=== PATIENT | male | born 1965 | race Caucasian/White ===

== ENCOUNTER 2025-05-10 10:04 | Emergency (ER) | payer MEDICAID, SELFPAY ==
--- NOTE | ~2025-05-10 | XR_ITS ---
Examination: XR chest 2V Clinical History: sob Comparison: None Technique: PA and Lateral Findings: Cardiomediastinal silhouette normal size and configuration. Lungs clear. No acute bony abnormality. IMPRESSION: 1. No acute cardiopulmonary findings. Reviewed, dictated and finalized at location R.
--- NOTE | ~2025-05-10 | US_ITS ---
BILATERAL LOWER EXTREMITY VENOUS DUPLEX Clinical History: edema and pain and red B . Comparison: None. Technique: Grayscale, color, duplex/spectral Doppler sonography bilateral lower extremities. Findings: Bilateral common femoral, femoral, popliteal, and calf veins compressible and color Doppler patent. Normal augmentation with distal compression. No internal echoes. IMPRESSION: 1. No DVT either leg. Reviewed, dictated and finalized at location R. IMPRESSION: 1. No DVT either leg.
[2025-05-10 10:04] VITALS: BP 127/96; PULSE 74; RESP 14; TEMP 36.6; O2SAT 98
--- NOTE | 2025-05-10 10:09 | ED_ITS ---
HPI - Extremity Injury (Lower) General Chief Complaint: Extremity Injury, Lower Stated Complaint: edema to legs Time Seen by Provider: 05/10/25 10:09 Source: patient Mode of arrival: ambulatory Limitations: no limitations History of Present Illness HPI Narrative: Patient is a 60-year-old male with bilateral lower extremity swelling and then redness to both legs over the past 3 weeks. He presents today with continued and worsening symptoms of the lower extremities bilaterally. Slight shortness of breath. No chest pain. No history of CAD. No PAD. No definite injuries. MD complaint: other (Bilateral lower extremity) Onset (ago): week(s) (3) Type of Injury: other (No injury or puncture wounds to lower extremity bilateral) Place: home Severity: moderate Severity scale (1-10): 4 Relieving factors: nothing Exacerbating factors: nothing Context: other (No injury) Associated symptoms: swelling and ambulatory Other symptoms: none Treatments prior to arrival: other (None) Related Data Allergies Allergy/AdvReac Type Severity Reaction Status Date / Time No Known Allergies Allergy Verified 05/10/25 10:49 Review of Systems 2 Review of Systems: All systems reviewed & are unremarkable except as noted in HPI and below Constitutional: Constitutional: Reports no additional constitutional complaints Eyes: Eyes: Reports no additional eye complaints ENT: Reports system reviewed and no additional complaints, except as documented Cardiovascular: Cardiovascular: Reports no additional cardiovascular complaints Respiratory: Respiratory: Reports no additional respiratory complaints Gastrointestinal: Gastrointestinal: Reports no additional gastrointestinal complaints Genitourinary: Genitourinary: Reports no additional male genitourinary complaints Musculoskeletal: Musculoskeletal: Reports no additional musculoskeletal complaints Integumentary/Breasts: Skin/Breast: Reports system reviewed and no additional complaints, except as docu Neurologic: Reports system reviewed and no additional complaints, except as documented Psychiatric: Psychiatric: Reports no additional psychiatric complaints Endocrine: Endocrine: Reports no additional endocrine complaints Hematologic/Lymphatic: Hematologic/Lymphatic: Reports no additional hematologic/lymphatic complaints Allergic/Immunologic: Allergic/Immunologic: Reports no additional allergic/immunologic complaints Exam 2 Const: General: healthy appearing Nutritional Appearance: well nourished Orientation/consciousness: patient oriented x3 HENMT: Head: normal to inspection Ears: external ears normal F munir/Nose/Sinus: Normal external nose present Eyes: Conjunctivae: conjunctivae normal Pupils: Equal, round and reactive pupils present EOM: EOMs intact bilaterally Neck: Neck: normal visual inspection Chest: Chest palpation & inspection: normal inspection of the chest Resp: Effort & Inspection: normal respiratory effort and not labored A uscultation: clear to auscultation bilaterally and no crackles Cardio: Rate: regular rate Rhythm: regular rhythm Heart sounds: no murmurs GI: Inspection: non-distended GI Palp: Yes Soft to palpation and No Tenderness to palpation present (GI) Auscultation: normal bowel sounds : General: Yes bladder normal to palpation Back/Spine/Pelvis: Back: no CVA tenderness Skin: General skin exam: normal color Rashes: no rashes Wounds: no wounds Neuro: General: patient oriented x3, moves all extremities and no meningeal signs Extrem: General: abnormal to inspection, clubbing, cyanosis or edema noted and pedal edema present Other: Bilateral lower extremity have erythema from the below knee all the way to the feet mostly circumferentially as well as 2 to 3+ pitting edema and some petechia without any nidus of infection Psych: Mental Status: mental status grossly normal Affect: normal affect Attitude: cooperative Course Vital Signs Vital signs: Vital Signs Temperature 36.6 C 05/10/25 10:04 Pulse Rate 74 05/10/25 10:04 Respiratory Rate 14 05/10/25 10:04 Blood Pressure 127/96 H 05/10/25 10:04 Pulse Oximetry 98 05/10/25 10:04 Oxygen Delivery Room Air 05/10/25 10:04 Temperature 36.6 C 05/10/25 10:04 Pulse Rate 74 05/10/25 10:04 Respiratory Rate 14 05/10/25 10:04 Blood Pressure 127/96 H 05/10/25 10:04 Pulse Oximetry 98 05/10/25 10:04 Oxygen Delivery Room Air 05/10/25 10:04 MDM - Extremity Injury (Lower) MDM Narrative Medical decision making narrative: Patient is a 60-year-old male with bilateral lower extremity swelling and redness over the past 3 weeks. We will get ultrasound, cardiac workup and routine labs. Urine. I discussed with the patient that he will likely need admission for IV antibiotics but he has declined at this time and said that he would like to try outpatient 1st. Lab Data Attestation: I reviewed the patient's lab results. 05/10/25 10:26 05/10/25 10:26 Labs: Lab Results 05/10/25 05/10/25 Range/Units 10:26 11:35 WBC 8.6 (4.8-10.8) K/mm3 RBC 4.85 (4.70-6.10) M/mm3 Hgb 15.8 (14.0-18.0) g/dL Hct 47.4 (40.0-54.0) % MCV 97.7 (78.0-102.0) fL MCH 32.6 H (27.0-31.0) pg MCHC 33.3 (32-36) g/dL RDW 13.0 (11.6-14.4) % Plt Count 186 (150-420) K/mm3 MPV 9.4 (8.7-11.0) fl Immature Gran % (Auto) 0.8 H (0.0-0.0) % Neut % (Auto) 71.2 H (50.0-70.0) % Lymph % (Auto) 14.0 L (18.0-42.0) % Rains % (Auto) 9.0 (2.0-11.0) % Eos % (Auto) 4.1 (1.0-6.0) % Baso % (Auto) 0.9 (0.0-1.0) % Lymph # (Auto) 1.20 (1.10-4.50) K/mm3 Rains # (Auto) 0.77 (0.10-0.90) K/mm3 Eos # (Auto) 0.35 (0.02-0.50) K/mm3 Baso # (Auto) 0.08 (0.00-0.10) K/mm3 Abs Immat Gran (auto) 0.07 H (0.00-0.00) K/mm3 Absolute Neuts (auto) 6.10 (1.70-7.20) K/mm3 Absolute Nucleated RBC 0.00 (0.00-0.00) K/mm3 Nucleated RBC % 0.0 (0-0.0) % Sodium 139 (137-145) mmol/L Potassium 4.7 (3.4-5.0) mmol/L Chloride 100 (98-107) mmol/L Carbon Dioxide 28 (22-30) mmol/L Anion Gap 11 (4-12) mmol/L BUN 8 L (9-20) mg/dL Creatinine 0.82 (0.7-1.3) mg/dL Estim Creat Clear Calc 102 ml/min Estimated GFR > 60 (59 - ) Glucose 113 H (65-110) mg/dL Hemoglobin A1c 5.2 (<5.7) % Calculated Osmolality 287 (285-295) mOsm/kg Calcium 10.2 (8.4-10.2) mg/dL Total Bilirubin 1.0 (0.2-1.3) mg/dL AST 50 (17-59) U/L ALT 24 (6-50) U/L Alkaline Phosphatase 91 (38-126) U/L Troponin I < 0.012 (0.000-0.034) ng/mL NT-Pro-B Natriuret Pep < 20 (19.9-100) pg/mL Total Protein 8.5 H (6.3-8.2) g/dL Albumin 4.3 (3.5-5.1) g/dL Urine Color Light yellow (Yellow) Urine Appearance Clear (Clear) Urine pH 6.0 (5.0-8.0) Ur Specific [place] 1.020 (1.010-1.020) Urine Protein Negative (Negative) Urine Glucose (UA) Negative (Negative) Urine Ketones 1+ H (Negative) Ur Blood (Man) Negative (Negative) Urine Nitrate Negative (Negative) Urine Bilirubin Negative (Negative) Urine Urobilinogen 0.2 (0.2-1.0) mg/dL Leukocyte Esterase Rfl Negative (Negative) MITCH/UL Imaging Data Attestation: I personally reviewed and interpreted this imaging study as follows: Radiologist's impression: Chest x-rays negative for acute process Venous ultrasound bilateral lower extremities were negative for DVTs ECG Data EKG #1: Attestation: I personally reviewed and interpreted this ECG as follows: ECG completion date: 05/10/25 ECG completion time: 10:38 EKG Interpretation: normal rate, sinus rhythm, no ectopy, normal QRS, normal QT and NL axis Discharge Plan Discharge Clinical Impression: Cellulitis Qualifiers: Site of cellulitis: extremity Site of cellulitis of extremity: lower extremity Laterality: unspecified laterality Qualified Code(s): L03.119 - Cellulitis of unspecified part of limb Patient Disposition: Home Condition: Stable Instructions: Antibiotic Form, Cellulitis (ED) Additional Instructions: Please come back to the emergency room with this outpatient plan does not work and you have continued swelling and redness. Elevate lower extremities. Patient Language: Serbian Prescriptions: New doxycycline monohydrate 100 mg capsule 100 mg PO BID 10 Days Qty: 20 0RF Follow-up/Referrals: UNKNOWN,DOCTOR [Non-Staff] Time of Disposition: 11:53
--- NOTE | 2025-05-10 10:15 | ECG_ITS ---
Test Date: 2025-05-10 10:24:39 Measurements Intervals [place] Rate: 67 P: 33 SC: 125 QRS: 71 QRSD: 101 T: 56 QT: 398 QTc: 423 Interpretive Statements SINUS RHYTHM No previous ECG available for comparison Electronically Signed On 05-10-2025 20:07:52 CDT by Kacy Clark M.D.
[2025-05-10 10:30] LABS: Hematocrit 47.4 % (40.0-54.0); Hemoglobin 15.8 g/dL (14.0-18.0); Immature Granulocyte Percent A 0.8 % (0.0-0.0); Lymphocytes Absolute Auto 1.20 K/mm3 (1.10-4.50); Mean Corpuscular HGB Conc 33.3 g/dL (32-36); Mean Corpuscular Hemoglobin 32.6 pg (27.0-31.0); Mean Corpuscular Volume 97.7 fL (78.0-102.0); Nucleated Red Blood Cells Absolute Auto 0.00 K/mm3 (0.00-0.00); Nucleated Red Blood Cells Perc 0.0 % (0-0.0); Platelet Count Result 186 K/mm3 (150-420); Red Blood Count 4.85 M/mm3 (4.70-6.10); White Blood Count 8.6 K/mm3 (4.8-10.8)
[2025-05-10 10:43] LABS: Alanine Aminotransferase 24 U/L (6-50); Albumin Level 4.3 g/dL (3.5-5.1); Alkaline Phosphatase 91 U/L (38-126); Anion Gap 11 mmol/L (4-12); Aspartate Amino Transferase 50 U/L (17-59); Bilirubin,Total 1.0 mg/dL (0.2-1.3); Blood Urea Nitrogen 8 mg/dL (9-20); Calcium 10.2 mg/dL (8.4-10.2); Carbon Dioxide 28 mmol/L (22-30); Chloride 100 mmol/L (98-107); Estimated CRCL calculation 102 ml/min; Estimated Glomerular Filt Rate > 60; Glucose 113 mg/dL (65-110); Osmolality Calculated 287 mOsm/kg (285-295); Potassium 4.7 mmol/L (3.4-5.0); Sodium 139 mmol/L (137-145); Total Protein 8.5 g/dL (6.3-8.2)
[2025-05-10 10:45] LABS: Hemoglobin A1C 5.2 % (<5.7)
--- OUTSIDE RECORDS SUMMARY | 2025-05-10 10:50 | XMS_ITS | Clinical Summary ---
Author Organization [facility] Address [address] [place] [id number] Care Team Providers Care Plate Stacker Name Role Phone Jean Claude Marquez DO Primary Care Provider + Allergies Active Allergy Reactions Criticality Noted Date Comments Ibuprofen Other (See comments) Low 09/05/2019 Reaction: Medications nystatin-triamci nolone creamIndications :cutaneous candidiasis Apply to affect area twice a day for 7-14 days then as needed for rash. 60 g 1 09/05/2019 Active Active Problems Problem Noted Date Diagnosed Date Dermatitis 01/06/2018 Other chronic pain 05/09/2017 Onychomycosis 11/28/2015 Pain of toe 11/28/2015 Immunizations Immunization Administration Dates Next Due Tdap 12/13/2018 Surgical History Surgery Date Site/Laterality Comments SHOULDER SURGERY Left HERNIA REPAIR Family History Medical History Relation Name Comments Cystic fibrosis Daughter Family histo ry of cystic fibrosis - (Added by TW Conv) Cancer Other Diabetes Other Relation Name Status Comments Daughter Other Social History Tobacco Use Types Packs/Day Years Used Date Smoking Tobacco: Never Alcohol Use Standard Drinks/Week Comments Not Currently 0 (1 standard drink = 0.6 oz pur e alcohol) PHQ-2 Answer Date Recorded PHQ-2 Score 0 09/05/2019 Personal Safety Answer Date Recorded Getting School Help Needed Not on file 10/28 Sex and Gender Information Value Date Recorded Sex Assigned at Not on file Legal Sex Male 3:08 AM 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 Gender Identity Not on file Sexual Orientation Not on file Obstetrics History Last Filed Vital Signs Vital Sign Reading Time Taken Comments Blood Pressure 142/80 09/05/2019 11:02 AM [employer]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 Pulse 59 09/05/2019 11:02 AM [employer]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 Temperature 36.7 C (98.1 F) 09/05/2019 11:02 AM E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 Respiratory Rate - - Oxygen Saturation 97% 09/05/2019 11:02 AM E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 Inhaled Oxygen Concentration - - Weight 88.9 kg (196 lb) 09/05/2019 11:02 AM E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 Height 182.9 cm (6') 09/05/2019 11:02 AM E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 Body Mass Index 26.58 09/05/2019 11:02 AM E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 Plan of Treatment Not on file Insurance [email or web address] H[employer] Care Teams Plate Stacker Relationship Specialty Start Date End Date Jean Claude Marquez DO [address] [place] [id number] PCP - General Family Medicine 08/23/19
[2025-05-10 10:54] LABS: NT Pro B Type Natriuretic Pept < 20 pg/mL (19.9-100)
[2025-05-10 10:56] LABS: Troponin I < 0.012 ng/mL (0.000-0.034)
[2025-05-10 11:39] LABS: Add Urine Microscopic? NO; Appearance Urine Clear (Clear); Glucose Urine UA Negative (Negative); Leukocyte Esterase Ur Negative LEU/UL (Negative); Nitrate Urine Negative (Negative); Specific Grav Ur 1.020 (1.010-1.020)
[2025-05-10] MEDS: cefTRIAXone 1 GM, LIDOCAINE 1% LOCAL INJ 2.1 ML IM (12:07)
[2025-05-10 12:26] VITALS: BP 128/88; PULSE 72; RESP 20; TEMP 36.7; O2SAT 98
--- NOTE | 2025-05-13 13:01 | PC.NURSE ---
preliminary blood cultures x2 reviewed. no growth in 24 hours.
--- NOTE | 2025-05-13 13:02 | PC.NURSE ---
preliminary blood culture reviewed. >100,00 gram neg bacilli isolated
--- NOTE | 2025-05-14 12:46 | PC.NURSE ---
preliminary blood cultures x2 reviewed. no growth in 48 hours
--- NOTE | 2025-05-17 13:49 | PC.NURSE ---
FINAL BLOOD CULTURE REPORT; NO GROWTH IN 5 DAYS.
== END 2025-05-10 12:28 | disposition home or self-care (01) ==
PROVIDERS: Emergency Provider Emergency Medicine; PCP Family Medicine
DX: L03.116 Cellulitis of left lower limb (principal); L03.115 Cellulitis of right lower limb
CPT/HCPCS: 36415; 71046; 80053; 81003; 83036; 83880; 84484; 85025; 87040; 93005; 93970; 96372; 99284; J0696; J2003